=== PATIENT | male | born 1935 ===

== ENCOUNTER 2017-11-22 00:26 | Inpatient (IN) | payer MEDICARE ==
[~2017-11-22] VITALS: Ht 170.2 cm; Wt 63.0 kg
[2017-11-22] VITALS (27 sets, daily range): BP systolic 97–149; BP diastolic 63–98
[~2017-11-22 00:26] MED LIST: ACET-1966 PO; ATOR10TA24 PO; BISA-236 RC; CHOL10005 PO; DOCU-416 PO; HYDR-3503 PO; MOM PO; MULT-1167 PO; PANT40TA65 PO; RIV10 PO; VITA150T2 PO
[2017-11-22] MEDS ORDERED: ceFAZolin(*) 2GM/D5W 50ML 50 ML IVPB ONE (06:00)
[2017-11-22] MEDS ORDERED: NORMOSOL R SOLN(*) 1000 ML BAG 1,000 ML IV PRN (06:00)
[2017-11-22] MEDS ORDERED: LIDOCAINE/SOD BICARB 8.4% SYR ID ONE (06:00)
[2017-11-22] MEDS ORDERED: MIDAZOLAM 2 MG/2 ML VIAL IVP PRN (06:00)
[2017-11-22] MEDS ORDERED: THROMBIN (BOVINE) 20,000 UNIT VIAL ONE (06:09)
[2017-11-22] MEDS ORDERED: ACETAMINOPHEN(*)1000 MG/100 ML 100 ML IVPB ONE (06:15)
[2017-11-22] MEDS ORDERED: PROPOFOL(*)1000 MG/100 ML VIAL 100 ML ONE (06:20)
[2017-11-22] MEDS ORDERED: ONDANSETRON 4 MG/2 ML VIAL ONE (06:26)
[2017-11-22] MEDS ORDERED: PROPOFOL EMUL(*) 10MG/ML 20 ML 20 ML ONE ×2 (06:26→08:41)
[2017-11-22] MEDS ORDERED: LIDOCAINE MPF 1% 5 ML VIAL ONE (06:26)
[2017-11-22] MEDS ORDERED: ROCURONIUM BROM 10 MG/ML 10 ML ONE (06:26)
[2017-11-22] MEDS ORDERED: DEXAMETHASONE SOD PHOS 10MG/ML ONE (06:26)
[2017-11-22] MEDS ORDERED: fentaNYL CITR 100 MCG/2 ML AMP ONE (06:27)
[2017-11-22] MEDS ORDERED: NS 0.9% IRRIGATION 1000ML PLCT IR ONE (06:35)
[2017-11-22] MEDS ORDERED: PHENYLEPHRINE/NS/PF 0.4MG/10ML ONE (07:36)
[2017-11-22] MEDS ORDERED: PHENYLEPHRINE 10 MG/1 ML VIAL ONE (07:41)
[2017-11-22] MEDS ORDERED: NS(*) 0.9% 250 ML BAG 250 ML ONE (07:44)
[2017-11-22] MEDS ORDERED: LR(*) 1000 ML BAG 1,000 ML IV PRN (11:20)
[2017-11-22] MEDS ORDERED: diphenhydrAMINE 25 MG CAP PO PRN (11:20)
[2017-11-22] MEDS ORDERED: MAGNESIUM HYDROXIDE* 30ML UDCP PO PRN (11:20)
[2017-11-22] MEDS ORDERED: ACETAMINOPHEN 500 MG TAB PO PRN (11:20)
[2017-11-22] MEDS ORDERED: FLUSH 10 ML SYR IVP PRN (11:20)
[2017-11-22] MEDS ORDERED: ONDANSETRON 4 MG/2 ML VIAL IVP PRN (11:20)
[2017-11-22] MEDS ORDERED: ACETAMINOPHEN(*)1000 MG/100 ML 100 ML IVPB PRN (11:20)
[2017-11-22] MEDS ORDERED: BISACODYL 10 MG SUPP PR PRN (11:20)
--- NOTE | 2017-11-22 11:52 | RADIOLOGY IMAGING REPORT ---
[place] [facility] [place] NAME: Andreas Galindo : 1935 MR: [id number] V: [id number] EXAM DATE: ORDERING PHYSICIAN: LYLY MURRAY TECHNOLOGIST: Location: [facility] Patient: Andreas Galindo : 1935 Visit/Account:[id number] Date of Sevice: 11/22/2017 Exam type: LUMBAR SPINE 1 VIEW History: L4-5 DISC HERNIATION, FUSION Comparison: October 18, 2017. Findings: Three intraoperative prone crosstable lateral views of the lumbar spine demonstrate posterior fusion at L4 and L5 with the aid of pedicle screws. Surgical instruments and sponge markers project over th e dorsal aspect of the lumbar spine on this intraoperative study IMPRESSION: 1. As above Report Dictated By: Nelida Fairbanks MD at 11/22/2017 11:45 AM Report E-Signed By: Nelida Fairbanks MD at 11/22/2017 11:47 AM WSN:[email or web address]
[2017-11-22] MEDS: HYDROmorphone HCL 2 MG/ML SDV IVP PRN ×2 (12:42→18:42)
--- NOTE | 2017-11-22 12:52 | Hospitalist Consultation ---
History of Present Illness Requesting Physician Dr. Daniels Reason for Consult Medication Management Chief Complaint s/p lumbar laminectomy History of Present Illness He was admitted s/p lumbar laminectomy. It is reported that the patient experienced a dural tear during surgery. He has a past medical history of GERD. History Problems: (1) GERD (gastroesophageal reflux disease) Status: Chronic (2) Hyperlipidemia Status: Chronic (3) History of knee replacement Status: Chronic Home Meds Reported Medications Cholecalciferol (Vitamin D3) (VITAMIN D3) 1,000 Unit Tablet, 1000 UNIT PO QDAY, TAB 11/15/17 Vitamin B Complex & Vit C No.4 (SUPER B COMPLEX) 150 Mg Tablet, 150 MG PO 11/15/17 Multivitamin With Minerals (MEN'S ONE DAILY) 1 Each Tablet, 1 EACH PO QDAY 11/15/17 Pantoprazole Sodium (PANTOPRAZOLE SODIUM) 40 Mg Tablet.dr, 40 MG PO QDAY, TAB.SR 11/15/17 Acetaminophen (TYLENOL) 325 Mg Tablet, 650 MG PO Q4H Y 04/28/13 Discontinued Reported Medications Rivaroxaban (XARELTO 10 MG TAB (OR EQUIV)) 10 Mg Tablet, 10 MG PO QDAY 04/28/13 Atorvastatin Calcium (LIPITOR) 10 Mg Tablet, 1 TAB PO QDAY, TAB 11/15/17 Magnesium Hydroxide (MILK OF MAGNESIA) 400 Mg/5 Ml Oral.susp, 30 ML PO Q8H Y 2 tablespoons as needed for constipation, may get over the counter 04/28/13 Bisacodyl (DULCOLAX) 10 Mg Supp.rect, 10 MG RC QDAY Y 04/28/13 Docusate Sodium (COLACE) 100 Mg Capsule, 100 MG PO QDAY Y may get over the counter if needed 04/28/13 Hydrocodone Bit/Acetaminophen (LORTAB 7.5-500 TABLET) 1 Each Tablet, 1 - 2 EACH PO Q4H Y, #40 lortab 7.5/325 04/28/13 Allergies: Coded Allergies: No Known Drug Allergies (Unverified , 04/18/13) Hx Smoking: No Smoking Status: Never Smoker Caffeine Intake: Coffee, Tea, Soda Caffeine/Cups Per Day: 6 CUPS Hx Alcohol Use: No Hx Substance Use Disorder: No Review of Systems All Systems Reviewed/Normal: Yes, Except as Noted Musculoskeletal: Pain Exam Vital Signs Vital Signs Date Time Temp Pulse Resp B/P (MAP) Pulse Ox O2 Delivery O2 Flow Rate FiO2 11/22/17 12:00 92 125/85 (98) 95 11/22/17 11:28 Nasal Cannula 1.0 11/22/17 11:28 97.9 12 General Appearance: Alert, Awake, No Acute Distress, Afebrile Cardiovascular: Regular Rate and Rhythm Respiratory: No Respiratory Distress, Clear to Auscultation Psych: Alert & Oriented X3, Appropriate Mood & Affect Assessment and Plan Problems: (1) S/P lumbar laminectomy Status: Acute Assessment & Plan: Followed by Dr. Daniels (2) GERD (gastroesophageal reflux disease) Status: Chronic Assessment & Plan: He is on chronic treatment with Protonix. (3) Hyperlipidemia Status: Chronic Assessment & Plan: He has previously been on chronic treatment with Atorvastatin, but has discontinued this by his primary care provider. He is now diet controlled. Venous Thromboembolism Antithrombotics Is Pt On Any Antithrombotics?: No Prophylaxis Tx Contraindicated Pharmacological Contraindicati: Surgical Contraindication Exam Sepsis Risk: No Definite Risk MAYA MARIE LAUNCH ENGINEER Nov 22, 2017 12:52
[2017-11-22] MEDS: ceFAZolin(*) 2GM/D5W 50ML 50 ML IVPB SCH ×2 (15:05→23:23)
[2017-11-22] MEDS: APAP/HYDROCODONE 325/5 TAB PO PRN ×2 (16:16→22:02)
[2017-11-22] MEDS: BENZOCAINE/MENTHOL 1 EACH LOZG PO PRN ×2 (19:42→22:02)
[2017-11-22] MEDS: DOCUSATE SODIUM 100 MG CAP PO SCH (22:02)
[2017-11-23 03:06] VITALS: BP 116/65
[2017-11-23] MEDS: BENZOCAINE/MENTHOL 1 EACH LOZG PO PRN (03:09)
[2017-11-23] MEDS: APAP/HYDROCODONE 325/5 TAB PO PRN ×2 (03:10→11:23)
[2017-11-23] MEDS: ceFAZolin(*) 2GM/D5W 50ML 50 ML IVPB SCH (07:36)
[2017-11-23 07:50] VITALS: BP 120/70
--- NOTE | 2017-11-23 08:41 | Hospitalist Progress Note ---
Subjective Progress Notes Subjective He has no complaints this morning. Patient Complains of: Cardiovascular: No: Chest Pain Respiratory: No: Shortness of Breath Physical Exam Vital Signs Date Time Temp Pulse Resp B/P (MAP) Pulse Ox O2 Delivery O2 Flow Rate FiO2 11/23/17 07:50 98.3 89 16 120/70 (87) 93 Nasal Cannula 1.0 Intake and Output 11/24/17 07:00 Output Total 125 ml Balance -125 ml Output Urine Total 125 ml # Voids 1 General Appearance: Alert, Awake, No Acute Distress, Afebrile Cardiovascular: Regular Rate and Rhythm Respiratory: No Respiratory Distress, Clear to Auscultation Psych: Alert & Oriented X3, Appropriate Mood & Affect Assessment and Plan Problems: (1) S/P lumbar laminectomy Status: Acute Assessment & Plan: Followed by Dr. Daniels (2) GERD (gastroesophageal reflux disease) Status: Chronic Assessment & Plan: He is on chronic treatment with Protonix. (3) Hyperlipidemia Status: Chronic Assessment & Plan: He has previously been on chronic treatment with Atorvastatin, but has discontinued this by his primary care provider. He is now diet controlled. Exam Sepsis Risk: No Definite Risk MAYA MARIE SCHOOL SUPERINTENDENT Nov 23, 2017 08:41
[2017-11-23] MEDS: DOCUSATE SODIUM 100 MG CAP PO SCH ×2 (09:09→21:41)
[2017-11-23] MEDS: PANTOPRAZOLE SOD 40 MG TABEC PO SCH (09:09)
[2017-11-23 11:03] VITALS: Ht 170.2 cm; Wt 63.0 kg
[2017-11-23 11:23] VITALS: BP 108/80
--- NOTE | 2017-11-23 11:33 | OPERATIVE REPORT 1 ---
EVENT DATE: November 22, 2017 SURGEON: Aman Daniels MD ANESTHESIOLOGIST: Escobar Villela MD ANESTHESIA: General endotracheal. 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 PROCEDURE PERFORMED L4-L5 laminectomy and L4-L5 posterolateral instrumented fusion. IV FLUIDS 1700 mL. ESTIMATED BLOOD LOSS 150 mL. IMPLANTS 6.5 mm x 45 mm Reline pedicle screws from [employer] x 4, a 35 mm connecting abiodun and a 40 mm connecting abiodun also from [employer] and locking caps x 4 from [employer]. SPECIMENS None. DRAINS None. COMPLICATIONS An incidental durotomy occurred, and will be described later in the procedure. INDICATIONS FOR SURGERY Mr. 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 In addition to this, he noted decreased walking tolerance secondary to heaviness and tiredness in his legs. His physical examination was essentially unremarkable, but his MRI showed severe spinal stenosis at the L4-L5 level, and flexion and extension x-rays showed significantly dynamic spondylolisthesis at L4-L5. Mr. Galindo had failed physical therapy, medications and activity modifications, and was therefore offered and elected to undergo L4-L5 laminectomy and fusion. Prior to surgery, I explained in detail to the patient the possible risks of surgery. This includes the risk of bleeding, infection, damage to surrounding structures, persistent and/or worsening pain, nerve root injury, spinal fluid leak, meningitis, , blindness, sexual dysfunction, autonomic nervous system dysfunction as well as other unforeseen medical and surgical complications. An understanding that spinal surgery is more predictive in improving extremity discomfort than axial spine pain was stressed. DESCRIPTION OF PROCEDURE On the date of surgery, the patient was admitted to the preoperative hold area, and all questions were answered. The operative site was identified and marked by myself. The patient was brought in good condition to the operating room, and after succumbing to anesthesia, was placed in the prone position on a Butch table. All bony protuberances and soft tissues were well padded in the standard fashion. Preoperative antibiotics were administered according to the appropriate timing schedule. Care was taken to maintain appropriate perfusion pressures during anesthesia. At the conclusion of the procedure, sponge and needle count were correct x 2. Final time out was undertaken by members of the operating team to confirm correct patient, correct levels and correct surgery. An incision was then made over the intended surgical levels, and sharp dissection was carried out down to the posterior elements. Soft tissues were elevated off the posterior elements in a subperiosteal manner, and a lateral radiograph was obtained to confirm correct level. At this point, a rongeur was used to remove the spinous process of L4. The lamina was thinned in the midline, and a Adam curette was used to undermine the superior insertion of the ligamentum flavum on the inferior surface of the L4 lamina. The canal was entered, and a Ada elevator was utilized to separate dura from surrounding soft tissue and bone prior to use of the Kerrison punch. A 4-0 Kerrison rongeur was then used to perform midline decompression. At the superior aspect of this decompression, we encountered a large arachnoid cyst. We packed this of with a surgical angela in hopes that it would not become a full thickness dural tear. Unfortunately, during the lateral recess decompressions, the arachnoid cyst gave way, and a significant amount of spinal fluid began leaking. We therefore packed that off again, and placed the patient in 5 degrees of Trendelenburg. We proceeded with bilateral lateral recess decompressions, taking care to thoroughly decompress the lateral recesses at that L4-L5 level, and also ensure that the foramina for the L5 and the L4 nerves were well decompressed. Once this was accomplished, we turned our attention to placement of pedicle screws. Appropriate starting points for pedicle screws were identified at approximately the junction of the pars interarticularis, the midpoint of the transverse process and the lateral aspect of the superior articular process. A high-speed adi was used to decorticate, and then a Lenke-type probe was used to advance resistance through the isthmus of the pedicle and into the vertebral body. A ball tip feeler was then used to palpate the pedicle superiorly, inferiorly, medial and laterally as well as distally to ensure absence of bony breaching. Once this was confirmed, 6.5 mm x 45 mm screws were placed bilaterally at L4 and bilaterally at L5. All screws had good purchase, and neurophysiologic monitoring was used to test the screws, all of which tested well above expected levels. Lateral radiograph was obtained to confirm correct placement of all screws. At this point, 2 L of sterile saline were used to irrigate the wound, and we then decorticated the transverse processes of L4 and L5 bilaterally. Bone that had been previously removed during the laminectomy portion of the procedure was run through a bone mill and then packed in the lateral recesses. Surgical patties were then removed from the durotomy, and two pieces of DuraGen were placed in a garfield cross fashion over the durotomy and the arachnoid cyst. The entire laminectomy defect was then sealed utilizing DuraSeal. Once this was completed, no CSF leakage was noted. The wound was then closed in layers using interrupted sutures for the deep fascia, interrupted sutures for the subcutaneous tissue and then a running subcuticular skin stitch. Sponge and needle counts were correct x 2. POSTOPERATIVE CARE PLAN We will keep Mr. Galindo flat overnight to give his durotomy an opportunity to heal. We will begin gradually sitting him up midmorning tomorrow. He will likely discharge home on Wednesday or of this week, and will follow up in my clinic in two weeks time for wound check and examination. SIMONE
[2017-11-23] MEDS: oxyCODONE HCL 5 MG CAP PO PRN ×3 (12:49→21:39)
[2017-11-23 15:34] VITALS: BP 117/74
[2017-11-23] MEDS: HYDROmorphone HCL 2 MG/ML SDV IVP PRN (18:12)
[2017-11-23 19:57] VITALS: BP 117/77
[2017-11-23] MEDS ORDERED: MELATONIN 3 MG TAB PO ONE (21:00)
[2017-11-23] MEDS: DIAZEPAM 5 MG TAB PO PRN (21:41)
[2017-11-24] VITALS (7 sets, daily range): BP systolic 100–130; BP diastolic 61–92
[2017-11-24] MEDS: HYDROmorphone HCL 2 MG/ML SDV IVP PRN ×2 (01:20→04:02)
[2017-11-24] MEDS: oxyCODONE HCL 5 MG CAP PO PRN ×4 (03:07→22:10)
[2017-11-24] MEDS: PANTOPRAZOLE SOD 40 MG TABEC PO SCH (08:24)
[2017-11-24] MEDS: DOCUSATE SODIUM 100 MG CAP PO SCH ×2 (08:25→20:45)
--- NOTE | 2017-11-24 13:37 | Hospitalist Progress Note ---
Subjective Progress Notes Subjective He has no complaints this morning. Patient Complains of: Cardiovascular: No: Chest Pain Respiratory: No: Shortness of Breath Physical Exam Vital Signs Date Time Temp Pulse Resp B/P (MAP) Pulse Ox O2 Delivery O2 Flow Rate FiO2 11/24/17 11:54 99.3 91 16 129/92 (104) 94 Nasal Cannula 1.0 Intake and Output 11/25/17 07:00 Intake Total 920 ml Balance 920 ml Intake Oral 920 ml # Voids 1 General Appearance: Alert, Awake, No Acute Distress, Afebrile Neuro: No Gross deficits Cardiovascular: Regular Rate and Rhythm Respiratory: No Respiratory Distress, Clear to Auscultation Psych: Alert & Oriented X3, Appropriate Mood & Affect Assessment and Plan Problems: (1) S/P lumbar laminectomy Status: Acute Assessment & Plan: Followed by Dr. Daniels (2) GERD (gastroesophageal reflux disease) Status: Chronic Assessment & Plan: He is on chronic treatment with Protonix. (3) Hyperlipidemia Status: Chronic Assessment & Plan: He has previously been on chronic treatment with Atorvastatin, but has discontinued this by his primary care provider. He is now diet controlled. Exam Sepsis Risk: No Definite Risk MAYA MARIE FUR JOINER Nov 24, 2017 13:37
[2017-11-24] MEDS: APAP/HYDROCODONE 325/5 TAB PO PRN ×2 (16:12→23:26)
[2017-11-25 03:18] VITALS: BP 120/71
[2017-11-25 06:59] VITALS: BP 136/79
[2017-11-25] MEDS: DOCUSATE SODIUM 100 MG CAP PO SCH ×2 (08:20→19:42)
[2017-11-25] MEDS: PANTOPRAZOLE SOD 40 MG TABEC PO SCH (08:20)
[2017-11-25] MEDS: oxyCODONE HCL 5 MG CAP PO PRN (08:21)
[2017-11-25] MEDS: DIAZEPAM 5 MG TAB PO PRN ×3 (09:31→18:23)
[2017-11-25 10:45] VITALS: BP 111/51
[2017-11-25] MEDS: APAP/HYDROCODONE 325/5 TAB PO PRN ×3 (12:38→22:28)
--- NOTE | 2017-11-25 12:54 | Hospitalist Progress Note ---
Subjective Progress Notes Subjective He has complaints of muscle spasms to his upper thighs this morning. Patient Complains of: Cardiovascular: No: Chest Pain Respiratory: No: Shortness of Breath Physical Exam Vital Signs Date Time Temp Pulse Resp B/P (MAP) Pulse Ox O2 Delivery O2 Flow Rate FiO2 11/25/17 10:45 97.6 105 16 111/51 (71) 94 Nasal Cannula 1.0 Intake and Output 11/26/17 07:00 Intake Total 240 ml Output Total 125 ml Balance 115 ml Intake Oral 240 ml Output Urine Total 125 ml # Voids 1 General Appearance: Alert, Awake, No Acute Distress, Afebrile Neuro: No Gross deficits Cardiovascular: Regular Rate and Rhythm Respiratory: No Respiratory Distress, Clear to Auscultation Psych: Alert & Oriented X3, Appropriate Mood & Affect Assessment and Plan Problems: (1) S/P lumbar laminectomy Status: Acute Assessment & Plan: Followed by Dr. Daniels (2) GERD (gastroesophageal reflux disease) Status: Chronic Assessment & Plan: He is on chronic treatment with Protonix. (3) Hyperlipidemia Status: Chronic Assessment & Plan: He has previously been on chronic treatment with Atorvastatin, but has discontinued this by his primary care provider. He is now diet controlled. Exam Sepsis Risk: No Definite Risk MAYA MARIE SHELVING SUPERVISOR Nov 25, 2017 12:54
[2017-11-25 19:37] VITALS: BP 124/74
[2017-11-25 22:32] VITALS: BP 135/84
[2017-11-26] MEDS: DIAZEPAM 5 MG TAB PO PRN ×2 (01:52→08:27)
[2017-11-26] MEDS: APAP/HYDROCODONE 325/5 TAB PO PRN ×2 (03:20→09:46)
[2017-11-26 03:21] VITALS: BP 121/83
[2017-11-26 07:35] VITALS: BP 131/78
[2017-11-26] MEDS ORDERED: HYDR-385 PO (07:55)
[2017-11-26] MEDS ORDERED: DIAZ-308 PO (07:56)
[2017-11-26] MEDS ORDERED: DOCU240C84 PO (07:57)
--- NOTE | 2017-11-26 08:11 | Hospitalist Progress Note ---
Subjective Progress Notes Subjective He has no complaints this morning. He states he is ready for discharge. Patient Complains of: Cardiovascular: No: Chest Pain Respiratory: No: Shortness of Breath Physical Exam Vital Signs Date Time Temp Pulse Resp B/P (MAP) Pulse Ox O2 Delivery O2 Flow Rate FiO2 11/26/17 07:35 97.8 84 12 131/78 (95) 93 Nasal Cannula 1.0 General Appearance: Alert, Awake, No Acute Distress, Afebrile Neuro: No Gross deficits Cardiovascular: Regular Rate and Rhythm Respiratory: No Respiratory Distress, Clear to Auscultation Psych: Alert & Oriented X3, Appropriate Mood & Affect Assessment and Plan Problems: (1) S/P lumbar laminectomy Status: Acute Assessment & Plan: Followed by Dr. Daniels (2) GERD (gastroesophageal reflux disease) Status: Chronic Assessment & Plan: He is on chronic treatment with Protonix. (3) Hyperlipidemia Status: Chronic Assessment & Plan: He has previously been on chronic treatment with Atorvastatin, but has discontinued this by his primary care provider. He is now diet controlled. Exam Sepsis Risk: No Definite Risk MAYA MARIE TILE LAYER Nov 26, 2017 08:11
[2017-11-26] MEDS: PANTOPRAZOLE SOD 40 MG TABEC PO SCH (08:26)
[2017-11-26] MEDS: DOCUSATE SODIUM 100 MG CAP PO SCH (08:27)
--- NOTE | 2017-11-26 09:52 | RADIOLOGY IMAGING REPORT ---
FACILITY: [facility] - [place] PATIENT NAME: Andreas Galindo : 1935 MR: [id number] V: [id number] EXAM DATE: ORDERING PHYSICIAN: LYLY MURRAY TECHNOLOGIST: Location: [facility] - [place] Patient: Andreas Galindo : 1935 Visit/Account:[id number] Date of Sevice: 11/26/2017 Exam type: LUMBAR SPINE 2 OR 3 VIEW History: dura leak Comparison: November 22, 2017. Findings: AP and lateral views of the lumbar spine demonstrate posterior lumbar interbody fusion at L4 and L5 w ith a pedicle screws and short segment posterior fixation rods. There is a minimal 2 mm anterior lis thesis of L4 with respect L5. There is moderate disc space narrowing from L2 to L5 and severe disc s pace narrowing L5-S1. Electrodes project over the dorsal soft tissues on the lateral view IMPRESSION: 1. Post surgical changes from posterior lumbar interbody fusion at L4 and L5 Report Dictated By: Nelida Fairbanks MD at 11/26/2017 9:46 AM Report E-Signed By: Nelida Fairbanks MD at 11/26/2017 9:48 AM WSN:[email or web address]
== END 2017-11-26 11:41 | disposition home or self-care (01) | DRG 460 ==
LOC: OR 00:26 → MED 11:20
PROVIDERS: ADMIT Orthopaedic Surgery; ATTEND Orthopaedic Surgery
PROC: 00UT0KZ Supplement Spinal Meninges with Nonautologous Tissue Substitute, Open Approach (ICD-10-PCS; 2017-11-22)
PROC: 0SG0071 Fusion of Lumbar Vertebral Joint with Autologous Tissue Substitute, Posterior Approach, Posterior Column, Open Approach (ICD-10-PCS; principal; 2017-11-22 07:11)
DX: M48.062 Spinal stenosis, lumbar region with neurogenic claudication (principal); G97.41 Accidental puncture or laceration of dura during a procedure; G96.0 Cerebrospinal fluid leak; M43.16 Spondylolisthesis, lumbar region; M51.16 Intervertebral disc disorders with radiculopathy, lumbar region; G96.19 Other disorders of meninges, not elsewhere classified; K21.9 Gastro-esophageal reflux disease without esophagitis; E78.5 Hyperlipidemia, unspecified; R13.10 Dysphagia, unspecified; Y83.8 Other surgical procedures as the cause of abnormal reaction of the patient, or of later complication, without mention of misadventure at the time of the procedure; Y79.3 Surgical instruments, materials and orthopedic devices (including sutures) associated with adverse incidents; Y92.234 Operating room of hospital as the place of occurrence of the external cause; Z96.651 Presence of right artificial knee joint; Z86.12 Personal history of poliomyelitis
CPT/HCPCS: 36415; 72020; 72100; 86850; 86900; 86901; 97161; C1713; C1763; J0131; J0690; J1100; J1170; J2001; J2370; J2405; J2704; J3010; J7050